=== PATIENT | female | born 2000 | race Caucasian/White ===

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

== ENCOUNTER 2018-02-14 10:45 | Emergency (ER) | payer SELFPAY ==
[2018-02-14 11:21] VITALS: BP 141/85
[2018-02-14] MEDS ORDERED: Ibuprofen TAB* 200 MG PO ONE (11:34)
--- NOTE | 2018-02-14 12:10 | UC ---
Yusuf Ventura Angela, scribed for Liza Juárez MD on 02/14/18 at 1130 . Headache HPI - HPI Summary HPI Summary: This pt is a 17 y/o male presenting to [facility] c/o right sided headache and right sided neck pain since yesterday. Pt reports that he began having pain around his jaw that began radiating to the right side of his neck. He notes he has a knot on the right side of his head which occasionally gives him tension headaches but pain was never radiating before. Pt states pain on the right side of his neck when swallowing. Denies drooling, trouble swallowing. He denies any trauma or injury. Denies fever, chills. He took Tylenol yesterday with no relief. Pt has fully transitioned from female to male. Pt gives himself a hormone shot, testosterone, once a week IM on alternating sides of thigh. NKDA. Patients medication reviewed this visit. - History Of Current Complaint Stated Complaint: JAW PAIN NECK PAIN Time Seen by Provider: 02/14/18 11:15 Hx Obtained From: Patient Onset/Duration: Lasting Days, Still Present Onset Of Symptoms: Gradual Currently Pain Is: Moderate Pain Intensity: 5 Pain Scale Used: 0-10 Numeric Timing: Days Character: Typical Headache Location of Headache: Other: - right sided Aggravating Factor(s): Nothing Allevating Factor(s): Nothing Associated Signs And Symptoms: Positive: Neck Pain - right sided. Negative: Nausea, Vomiting, Fever, Other (Noted In Comments) - Fever, chills - Allergies/Home Medications Allergies/Adverse Reactions: Allergies Allergy/AdvReac Type Severity Reaction Status Date / Time No Known Allergies Allergy Verified 02/14/18 11:15 Home Medications: Home Medications Testosterone [Testosterone Topical Solu] 0.4 ml IM WEEKLY 02/14/18 [History Confirmed 02/14/18] PMH/Surg Hx/FS Hx/Imm Hx Previously Healthy: Yes Other Cardiovascular History: Denies: HTN Respiratory History: Asthma - Surgical History Surgical History: None - Family History Known Family History: Positive: Diabetes Family History: Thyroid disease - Social History Occupation: Employed Full-time - at [employer] Alcohol Use: Occasionally Alcohol Amount: once a week Substance Use Type: None Smoking Status (MU): Never Smoked Tobacco Review of Systems Constitutional: Negative Skin: Negative Eyes: Negative ENT: Negative Respiratory: Negative Cardiovascular: Negative Gastrointestinal: Negative Genitourinary: Negative Motor: Negative Neurovascular: Negative Musculoskeletal: Other: - right sided neck pain, jaw pain Neurological: Headache Psychological: Negative Is Patient Immunocompromised?: No All Other Systems Reviewed And Are Negative: Yes Physical Exam Triage Information Reviewed: Yes Appearance: Well-Appearing, No Pain Distress, Well-Nourished Vital Signs: Initial Vital Signs Temp 98 F 02/14/18 11:17 Pulse 76 02/14/18 11:17 Resp 14 02/14/18 11:17 BP 141/85 02/14/18 11:17 Pulse Ox 100 02/14/18 11:17 Vital Signs Reviewed: Yes Eye Exam: Normal Eyes: Positive: Conjunctiva Clear ENT: Positive: Hearing grossly normal, Nasal congestion, TM bulging, Tonsillar swelling, Uvula midline, Other - mild fluid left TM right TM wnl turbinates boggy + tonsillar exudate uvula midline mild erythema no intraoral edema no intraoral lesion. Negative: Sinus tenderness Dental Exam: Normal Neck: Positive: Supple, Nontender. Negative: No Lymphadenopathy - mild submandibular LA R Respiratory Exam: Normal Respiratory: Positive: Chest non-tender, Lungs clear, Normal breath sounds, No respiratory distress, No accessory muscle use Cardiovascular Exam: Normal Cardiovascular: Positive: RRR, No Murmur, Pulses Normal Abdominal Exam: Normal Abdomen Description: Positive: Nontender, No Organomegaly, Soft Bowel Sounds: Positive: Present Musculoskeletal Exam: Normal Musculoskeletal: Positive: Strength Intact, Other: - no spinous process pain mild discomfort right SCM pain with ROM testing Neurological Exam: Normal Neurological: Positive: Alert, Muscle Tone Normal Psychological Exam: Normal Psychological: Positive: Normal Response To Family Skin Exam: Normal Skin: Positive: Other - per pt request, evaluated right thigh injection site- no erythema, warmth, fluctuance or concern for infection Headache Course/Dx - Course Course Of Treatment: Blood pressure noted and patient informed to follow up with PCP. Rapid strep test is negative. d/w pt at length suspect pharyngitis - strep neg. neck pain suspect muscle spasm. heat, stretch. motrin.apap. gargle warm salt. decongestant - Differential Dx/Diagnosis Provider Diagnoses: pharyngitis. muscle spasm. medication refill. lymphadenopathy Discharge - Sign-Out/Discharge Documenting (check all that apply): Discharge/Admit/Transfer - Discharge - Discharge Plan Condition: Stable Disposition: HOME Prescriptions: Albuterol HFA INHALER* [Ventolin HFA Inhaler*] 2 puff INH Q4H PRN #1 mdi PRN Reason: wheeze Patient Education Materials: Pharyngitis (ED), Lymphadenopathy (ED), Muscle Spasm (ED), Medicine Refill (ED) Referrals: No Primary Care Phys,NOPCP [Primary Care Provider] - Additional Instructions: - Okay to alternate ibuprofen (advil, motrin) and tylenol every 3hours for pain. Take with food. Do NOT take for more than 4-5 days - apply moist heat to your neck. Once your muscles are warm, slow gentle stretching exercises are recommended - okay to take over the counter decongestant such as Claritin-D, Gogo-D, Zyrtec-D - Gargle and spit with warm, salt water - contact your doctor to schedule a follow-up appointment. Contact your doctor , return here or go to the emergency department with questions or concerns - Billing Disposition and Condition Condition: STABLE Disposition: HOME The documentation as recorded by the Yusuf méndez Angela accurately reflects the service I personally performed and the decisions made by , Liza Juárez MD.
== END 2018-02-14 12:19 | disposition home or self-care (01) ==
LOC: EDSEX 10:45 → UCEAST 10:45
DX: R51 Headache (principal); M54.2 Cervicalgia; J45.909 Unspecified asthma, uncomplicated; Z87.890 Personal history of sex reassignment
CPT/HCPCS: 87651; 99212; A9270-GY; G0463

== ENCOUNTER 2018-03-22 12:27 | Emergency (ER) | payer MEDICAID ==
[2018-03-22 12:57] VITALS: BP 116/56
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
--- NOTE | 2018-03-22 14:03 | RAD ---
Indication: Left lower back pain. 5 views of lumbar spine are reviewed. The vertebral bodies appear normal in height. Disc spaces well-preserved. Spinal canal appears to be intact. IMPRESSION: Unremarkable lumbar spine.
== END 2018-03-22 14:29 | disposition home or self-care (01) ==
LOC: UCEAST 12:27
DX: M54.5 Low back pain (principal); J45.909 Unspecified asthma, uncomplicated
CPT/HCPCS: 72110; 99212; G0463

== ENCOUNTER 2018-06-15 22:59 | Emergency (ER) | payer MEDICAID, OTHER ==
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
[2018-06-16 01:12] VITALS: BP 99/60
--- NOTE | 2018-06-16 08:55 | RAD ---
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 FINDINGS: The heart and mediastinum are normal in size and contour. The lungs are grossly clear. There is no evidence of large pleural effusion. Visualized bones are normal for the patient's age. There is no radiographic evidence of free air beneath the diaphragm IMPRESSION: No radiographic evidence of acute cardiopulmonary disease. R0
== END 2018-06-16 01:05 | disposition home or self-care (01) ==
LOC: ED 22:59
DX: J70.5 Respiratory conditions due to smoke inhalation (principal); R06.02 Shortness of breath; R07.9 Chest pain, unspecified; R05 Cough
CPT/HCPCS: 71046; 99281

== ENCOUNTER 2018-07-17 13:32 | Emergency (ER) | payer MEDICAID, OTHER ==
[2018-07-17 13:45] VITALS: BP 119/65
--- NOTE | 2018-07-17 14:06 | UC ---
Respiratory Complaint HPI - HPI Summary HPI Summary: 18-year-old male presents with 1-2 day history of nasal congestion, clear nasal drainage, sore throat, and a nonproductive cough. Denies fever, chills, ear pain or drainage, chest pain, shortness of breath, wheezing, abdominal pain, nausea, or vomiting. Has history of asthma however has not had to use his albuterol inhaler. His significant other has been sick with similar symptoms. - History of Current Complaint Chief Complaint: UCGeneralIllness Stated Complaint: RESP ISSUE Time Seen by Provider: 07/17/18 13:59 Hx Obtained From: Patient Onset/Duration: Gradual Onset, Lasting Days - 2 Severity Initially: Mild Severity Currently: Mild Pain Intensity: 2 Aggravating Factors: Nothing Alleviating Factors: Nothing Associated Signs And Symptoms: Positive: URI, Nasal Congestion. Negative: Dyspnea, Fever, Chills, Pleuritic Chest Pain, Wheezing, Hoarseness - Allergies/Home Medications Allergies/Adverse Reactions: Allergies Allergy/AdvReac Type Severity Reaction Status Date / Time No Known Allergies Allergy Verified 07/17/18 13:43 Home Medications: Home Medications Acetaminophen/Dextromethorphan [Daytime Cold & Cough Liquid] 07/17/18 [History] PMH/Surg Hx/FS Hx/Imm Hx - Additional Past Medical History Additional PMH: Juvenile rheumatoid arthritis Previously Healthy: Yes Respiratory History: Asthma - Surgical History Surgical History: None - Family History Known Family History: Positive: Diabetes Family History: Thyroid disease - Social History Occupation: Employed Full-time Lives: With Family Alcohol Use: Occasionally Alcohol Amount: once a week Substance Use Type: None Smoking Status (MU): Never Smoked Tobacco - Immunization History Most Recent Tetanus Shot: UTD Review of Systems Constitutional: Negative Skin: Negative Eyes: Negative ENT: Sore Throat, Nasal Discharge, Sinus Congestion Respiratory: Cough Cardiovascular: Negative Gastrointestinal: Negative Is Patient Immunocompromised?: No All Other Systems Reviewed And Are Negative: Yes Physical Exam Triage Information Reviewed: Yes Appearance: Well-Appearing, No Pain Distress, Well-Nourished Vital Signs: Initial Vital Signs Temp 97.8 F 07/17/18 13:37 Pulse 74 07/17/18 13:37 Resp 16 07/17/18 13:37 BP 119/65 07/17/18 13:37 Pulse Ox 99 07/17/18 13:37 Vital Signs Reviewed: Yes Eyes: Positive: Conjunctiva Clear. Negative: Discharge ENT: Positive: Hearing grossly normal, Pharyngeal erythema - Mild erythema with postnasal drip, Nasal congestion, Nasal drainage, TMs normal, Uvula midline. Negative: Tonsillar swelling, Tonsillar exudate, Trismus, Muffled voice, Hoarse voice, Sinus tenderness Neck: Positive: Supple, Nontender, No Lymphadenopathy Respiratory: Positive: Lungs clear, Normal breath sounds, No respiratory distress Cardiovascular: Positive: RRR, No Murmur Neurological: Positive: Alert Skin Exam: Normal UC Diagnostic Evaluation - Laboratory O2 Sat by Pulse Oximetry: 99 Respiratory Course/Dx - Course Course Of Treatment: 18-year-old male presents with 2 day history of upper respiratory infection. Afebrile. Exam unremarkable except for some nasal congestion and mild pharyngeal erythema with postnasal drip. His significant other has been ill with similar symptoms. Likely viral illness. Recommend symptomatic treatment. Follow-up with primary care provider in 7 days if no improvement. Patient verbalizes understanding and agrees with plan of care. - Differential Dx/Diagnosis Differential Diagnosis/HQI/PQRI: Asthma, Bronchitis, Lower Resp Infection Provider Diagnoses: Viral URI Discharge - Sign-Out/Discharge Documenting (check all that apply): Patient Departure All imaging exams completed and their final reports reviewed: No Studies - Discharge Plan Condition: Stable Disposition: HOME Prescriptions: Benzonatate CAP* [Tessalon 100 MG CAP*] 100 mg PO TID PRN #21 cap PRN Reason: Cough Patient Education Materials: Upper Respiratory Infection (ED) Referrals: No Primary Care Phys,NOPCP [Primary Care Provider] - Additional Instructions: Your symptoms appear to be from a viral upper respiratory infection. Viral infections do not respond to antibiotics and typically run their course over 7- 10 days. Drink plenty of fluids to stay well hydrated. Use a saline rinse kit such as Netti Pot or NeilMed twice daily to help thin secretions and promote drainage. Use an over the counter decongestant such as Sudafed according to directions. Use your albuterol inhaler 2 puffs every 4-6 hours as needed for shortness of breath or wheezing. May use Tessalon Perles 1 cap every 8 hours as needed for cough. Take acetaminophen (Tylenol) or ibuprofen (Advil, Motrin) according to directions as needed for aches, pain, or fever. Follow up with your primary care provider in 7 days if symptoms persist. Seek immediate medical attention in the emergency room if you have persistent fever greater than 100.5 F despite taking acetaminophen or ibuprofen, chest pain , shortness of breath, persistent wheezing despite using albuterol, or any worsening of symptoms. - Billing Disposition and Condition Condition: STABLE Disposition: Home - Attestation Statements Provider Attestation: Per institutional requirements, I have reviewed the chart, however, I was not consulted specifically or made aware of this patient by the midlevel provider. I did not personally evaluate, interact with , or disposition this patient.
== END 2018-07-17 14:19 | disposition home or self-care (01) ==
LOC: EDSEX 13:32 → UCEAST 13:32
DX: J06.9 Acute upper respiratory infection, unspecified (principal); J45.909 Unspecified asthma, uncomplicated
CPT/HCPCS: 99212; G0463

== ENCOUNTER 2022-08-31 20:16 | Observation (INO) ==
[2022-08-31 21:42] LABS: ABS Eosinophils 0.3 10^3/ul (0-0.6); ABS Lymphocytes 0.7 10^3/ul (1.0-4.8); ABS Monocytes 0.7 10^3/ul (0-0.8); ABS Neutrophils 5.4 10^3/ul (1.5-7.7); Eosinophil % 4.8 %; Hematocrit 43 % (42-52); Hemoglobin 14.5 g/dL (14.0-18.0); Lymphocyte % 9.3 %; Mean Corpuscular HGB Conc 33 g/dL (31-36); Mean Corpuscular Hemoglobin 29 pg (27-31); Mean Corpuscular Volume 86 fL (80-94); Mean Platelet Volume 11.5 fL (7.4-10.4); Nucleated Red Blood Cells % 0.1; Platelet Count 171 10^3/uL (150-450); Red Blood Count 5.05 10^6 /uL (4.18-5.48); Red Cell Distribution Width 13 % (10-15); White Blood Count 7.1 10^3/uL (3.5-10.8)
[2022-08-31 22:31] LABS: Urine Appearance Clear; Urine Bilirubin Negative (Negative); Urine Blood Negative (Negative); Urine Color Yellow; Urine Glucose Negative (Negative); Urine Ketones Negative (Negative); Urine Nitrite Negative (Negative); Urine Protein Negative (Negative); Urine Specific Gravity 1.018 (1.002-1.030); Urine Urobilinogen Negative (Negative)
[2022-08-31 22:38] LABS: Urine Bacteria Absent (Absent); Urine Red Blood Cell Trace(0-2/hpf) (Absent); Urine Squamous Epithelial Cell Present (Absent); Urine White Blood Cell 3+(>20/hpf) (Absent)
[2022-08-31 22:42] LABS: Albumin 4.5 g/dL (3.2-5.2); Albumin/Globulin Ratio 1.6 (1-3); Calcium 9.7 mg/dL (8.6-10.3); Globulin 2.9 g/dL (2-4); Magnesium 1.9 mg/dL (1.9-2.7); Potassium 3.6 mmol/L (3.5-5.0); Total Bilirubin 0.4 mg/dL (0.2-1.0); Total Protein 7.4 g/dL (6.4-8.9); eGFR CKD-EPI 116.1 (>60)
[2022-08-31 22:56] LABS: TSH Ultra Thyroid Stim Horm 3.63 mcIU/mL (0.34-5.60)
[2022-09-01 00:01] LABS: High Sensitivity Troponin 1 Hr 26 pg/mL (<20)
[2022-09-01 01:26] LABS: C Reactive Protein 2.31 mg/L (<8.01)
[2022-09-01 02:16] LABS: Erythrocyte Sed Rate 5 mm/Hr (0-14)
[2022-09-01] MEDS ORDERED: Iohexol 350 (CONTRAST) 500 ML MDV IV ONE (13:06)
[2022-09-01 13:48] LABS: High Sensitivity Troponin 3 Hr 6 pg/mL (<20)
[2022-09-01 14:35] VITALS: BP 132/82
== END 2022-09-01 15:00 | disposition home or self-care (01) ==
LOC: ED 20:16 → EDHOLD 20:16 → SUATTDRO 09-01 01:39 → EDHOLD 09-01 14:33
PROVIDERS: ADMIT Student in an Organized Health Care Education/Training Program; ATTEND Internal Medicine